=== PATIENT | female | born 1960 | race Caucasian/White ===

== ENCOUNTER 2022-11-25 06:33 | Day surgery (SDC) | payer OTHER ==
[2022-11-25] MEDS ORDERED: CEFAZOLIN 2 GM-D5W BAG** 2 GM/50 ML ML IV ONE (06:57)
[2022-11-25] MEDS ORDERED: CEFAZOLIN 2 GM-D5W BAG** 2 GM/50 ML ML IV SCH (07:00)
[2022-11-25] MEDS ORDERED: Lactated Ringers 1,000 ML IV SCH (07:00)
[2022-11-25] MEDS ORDERED: Xylocaine-Mpf 2% 5 Ml Vial ONE (08:25)
[2022-11-25] MEDS ORDERED: DIPRIVAN 200 MG/20 ML IV ONE (08:25)
[2022-11-25] MEDS ORDERED: Versed 2 MG/2 ML Injection ONE (08:25)
[2022-11-25] MEDS ORDERED: SUBLIMAZE 100 MCG/2 ML ONE (08:25)
[2022-11-25] MEDS ORDERED: TORAdol 30 mg Injection ONE (08:33)
[2022-11-25] MEDS ORDERED: Zofran 4 MG/2 ML VIAL ONE (08:33)
[2022-11-25] MEDS ORDERED: Decadron 4 MG INJ ONE (08:33)
[2022-11-25] MEDS ORDERED: PHENYLEPHRINE HCL ONE (08:35)
[2022-11-25 09:43] VITALS: BP 140/92; PULSE 89; O2SAT 93
--- NOTE | 2022-11-26 07:42 | OP ---
SURGERY DATE/TIME: 11/25/2022822 PREOPERATIVE DIAGNOSIS: Postmenopausal bleeding. POSTOPERATIVE DIAGNOSIS: Postmenopausal bleeding. PROCEDURE: Hysteroscopy D&C. SURGEON: Anjum Granda D.O. LEGAL ADMINISTRATIVE SECRETARY: Jacqueline Delong surgical technician. ANESTHESIA: General. ESTIMATED BLOOD LOSS: Minimal. COMPLICATIONS: None. INDICATIONS: The risks, benefits, indications and alternatives of the procedure were reviewed with the patient prior to procedure. The patient understood the risk of infection, bleeding, bowel injury, bladder injury, uterine perforation, pelvic infection, thromboembolic disorder associated with the surgery and desires to have this surgery as a possible means to alleviate her current medical condition. DESCRIPTION OF PROCEDURE AND FINDINGS: At this point the patient is taken to the operating room, given general sedation, placed in dorsal lithotomy position, prepped and draped in the usual sterile fashion. A weighted speculum is then placed in the patient's vagina and the anterior lip of the cervix is grasped with a single tooth tenaculum. Endocervical dilators were advanced through the endocervical canal as a means to dilate the cervix and at this point after dilatation a 5 mm hysteroscope was then placed into the fundus of the uterus where visualization of the endometrial cavity appeared to be within normal limits and no gross abnormalities were noted within the uterine cavity. The hysteroscope was then removed and the curette was then placed into the fundus of the uterus and curettage was performed in all quadrants of the uterus retrieving a mild to moderate amount of tissue. From this point hemostasis was obtained. At this point all instruments were removed from the patient's vaginal region. The patient was then taken out of the dorsal lithotomy position, was then taken out of anesthesia and was then taken to the recovery room in stable condition. All instruments and laps were accounted for x2.
== END 2022-11-25 09:50 | disposition home or self-care (01) ==
LOC: SDC 06:33
PROVIDERS: ATTEND Obstetrics & Gynecology
DX: N95.0 Postmenopausal bleeding (principal)
CPT/HCPCS: J0690; J1100; J1885; J2250; J2370; J2405; J2704; J3010

== ENCOUNTER 2024-08-30 07:29 | Day surgery (SDC) | payer OTHER ==
[2024-08-30] MEDS ORDERED: Sodium Chloride 0.9% 10 ML FLUSH Syringe IJ ONE (07:30)
[2024-08-30] MEDS ORDERED: BETADINE 5% OPHTHALMIC 30 ML OP ONE (07:30)
[2024-08-30] MEDS ORDERED: TRIAMCINOLONE 15 MG/ML INJ INTRAOP ONE (07:30)
[2024-08-30] MEDS ORDERED: VIGAMOX/BSS 0.15% SYR IO ONE (07:30)
[2024-08-30 07:58] VITALS: RESP 18
[2024-08-30] MEDS: TETRACAINE 0.5% STERI-UNIT SOL OP ONE ×2 (08:13→08:41)
[2024-08-30] MEDS: Ak-Dilate OPHTHALMIC*** 1.065 ML, Cyclogyl 1% OPHTH SOL 1.065 ML, GATIFLOXACIN 0.5% OPH... OP ONE (08:14)
[2024-08-30] MEDS ORDERED: Epinephrine Preservative Free 1 MG/ML IJ ONE (09:30)
[2024-08-30] MEDS ORDERED: Zofran 4 MG/2 ML VIAL IV PRN (09:30)
[2024-08-30] MEDS ORDERED: DIPRIVAN 200 MG/20 ML IV ONE (10:16)
[2024-08-30 10:39] VITALS: TEMP 96.9
[2024-08-30] MEDS: ACETAZOLAMIDE 250 MG TABLET PO ONE (10:49)
[2024-08-30 10:54] VITALS: O2SAT 95
[2024-08-30 10:59] VITALS: BP 121/95; PULSE 95
== END 2024-08-30 11:08 | disposition home or self-care (01) ==
LOC: SDC 07:29
PROVIDERS: ATTEND Ophthalmology
DX: H25.812 Combined forms of age-related cataract, left eye (principal)
CPT/HCPCS: C1780; J0171; J2704; A9270-GY

== ENCOUNTER 2025-07-05 06:32 | Day surgery (SDC) | payer OTHER ==
[2025-07-05] MEDS ORDERED: TYLENOL EXTRA STRENGTH 500 MG ONE (07:08)
[2025-07-05] MEDS ORDERED: CEFAZOLIN SODIUM ONE (07:08)
[2025-07-05] MEDS ORDERED: NEURONTIN ONE (07:08)
[2025-07-05] MEDS ORDERED: celeBREX 100 MG ONE (07:09)
[2025-07-05] MEDS ORDERED: Decadron 4 MG ONE (07:09)
[2025-07-05] MEDS ORDERED: Lactated Ringers 1,000 ML IV ONE (07:09)
[2025-07-05] MEDS: NEURONTIN PO ONE (07:12)
[2025-07-05] MEDS: TYLENOL EXTRA STRENGTH 500 MG PO ONE (07:13)
[2025-07-05] MEDS: Lactated Ringers 1,000 ML IV SCH (07:13)
[2025-07-05] MEDS: Decadron 4 MG PO ONE (07:13)
[2025-07-05] MEDS: celeBREX 100 MG PO ONE (07:13)
[2025-07-05] MEDS: TRANEXAMIC 1,000 MG/100ML-NACL 1,000 MG/100 ML PIGGYBACK IV ONE (07:20)
[2025-07-05] MEDS ORDERED: TRANEXAMIC 1,000 MG/100ML-NACL 1,000 MG/100 ML PIGGYBACK IV ONE ×2 (07:20→10:45)
[2025-07-05] MEDS ORDERED: propofoL IV ONE (07:42)
[2025-07-05] MEDS ORDERED: Xylocaine-Mpf 2% 5 Ml Vial ONE ×2 (07:43→08:26)
[2025-07-05] MEDS ORDERED: SUBLIMAZE 100 MCG/2 ML ONE ×2 (07:45→08:24)
[2025-07-05] MEDS ORDERED: Versed 2 MG/2 ML Injection ONE ×2 (07:45→08:24)
[2025-07-05] MEDS ORDERED: ROCURONIUM BROMIDE IV ONE ×2 (07:45→09:05)
[2025-07-05] MEDS ORDERED: Marcaine 0.5%/Epinephrine 10 ML ONE (07:46)
[2025-07-05] MEDS ORDERED: EXPAREL 133 MG/10 ML VIAL IJ ONE (07:48)
[2025-07-05] MEDS ORDERED: MARCAINE 0.25% PF/ EPI 1:200,000 ONE (08:18)
[2025-07-05] MEDS ORDERED: MARCAINE 0.5%-EPI 1:200,000 VL IJ ONE (08:18)
[2025-07-05] MEDS ORDERED: Astramorph-Pf 5 MG/10 ML ONE (08:54)
[2025-07-05] MEDS ORDERED: BRIDION 200MG/2ML IV ONE ×2 (09:05→11:08)
[2025-07-05] MEDS ORDERED: Zofran 4 MG/2 ML VIAL ONE (09:05)
[2025-07-05] MEDS ORDERED: Ephedrine Sulfate 50 MG/ML ONE (10:16)
[2025-07-05] MEDS ORDERED: ALBUTEROL/Proair Hfa MDI IH ONE (11:19)
--- NOTE | 2025-07-05 12:28 | XRAY ---
Indication: Postop exam. Comparison: None AP/cross-table lateral left knee demonstrates intact total knee arthroplasty with postoperative soft tissue swelling/emphysema, and anterior cutaneous devaughn. Elsewhere age-related osteopenia. No other abnormalities.
[2025-07-05] MEDS ORDERED: PERCOCET TABLET 5/325MG PO PRN (13:00)
[2025-07-05] MEDS ORDERED: DEMEROL 50 MG IV PRN (13:00)
[2025-07-05] MEDS ORDERED: CLARITIN 10 MG PO PRN (13:00)
[2025-07-05] MEDS ORDERED: Sodium Chloride 0.9% 10 ML FLUSH Syringe IJ PRN (13:00)
[2025-07-05] MEDS ORDERED: BENADRYL 50 MG/ML IV PRN (13:00)
[2025-07-05] MEDS ORDERED: Narcan 0.4 MG/ML IV PRN (13:00)
[2025-07-05] MEDS ORDERED: Nubain 10 MG/ML IV PRN (13:00)
[2025-07-05] MEDS ORDERED: MORPHINE SULFATE 2 MG INJ IV PRN (13:00)
[2025-07-05] MEDS ORDERED: MORPHINE SULFATE 4 MG INJ IV PRN (13:37)
[2025-07-05] MEDS: Zofran 4 MG/2 ML VIAL IV PRN (13:40)
[2025-07-05] MEDS: Toprol-Xl 25MG Tablets PO SCH (14:29)
[2025-07-05] MEDS: NORCO 10-325 MG PO PRN (17:49)
[2025-07-05 20:28] VITALS: RESP 20; O2SAT 96
[2025-07-05] MEDS ORDERED: NON-FORMULARY ITEM (Apixaban [Eliquis] 5 MG Tablet) PO SCH (22:00)
[2025-07-06 04:43] VITALS: BP 116/56; PULSE 82; TEMP 97.2
[2025-07-06] MEDS: ELIQUIS 2.5 MG TABLET PO SCH (08:54)
[2025-07-06] MEDS: Compazine 10 MG/2 ML IV ONE (09:09)
[2025-07-06] MEDS: HOLD NARCOTIC ANALGESICS AND SEDATIVES X24 HR MC SCH (10:00)
[2025-07-06] MEDS: ZOCOR 20MG PO SCH (10:00)
[2025-07-06] MEDS ORDERED: NON-FORMULARY ITEM (Rosuvastatin Calcium [Crestor] 20 MG Tablet) PO SCH (10:00)
--- NOTE | 2025-07-06 10:27 | PCM.NOTE ---
Date and Time: 07/06/25 1024 Subjective Assessment: She has had nausea which has gotten somewhat better with the medication. States her left knee is doing well. She has ambulated with PT and is ready to go home. Objective Exam Objective Exam: Left knee dressing is clean, dry, intact. NVI. Objective Data Vital Signs: Vital Signs - 24 hr Temp Pulse Resp BP BP Pulse Ox 07/06/25 04:00 97.2 F 82 20 116/56 96 07/05/25 20:00 97.1 F 89 20 108/57 96 07/05/25 14:06 95 07/05/25 12:26 98.3 F 82 16 100/60 95 07/05/25 12:22 98.3 F 82 16 100/60 95 Pain Assessment - Last Documented Pain Intensity 3 Pain Scale Used [facility] Intake and Output: Intake & Output 07/04/25 07/05/25 07/06/25 07/07/25 06:59 06:59 06:59 06:59 Intake Total 3448 Balance 3448 Weight 126 kg 126 kg Lab Results: Lab Results-Last 24 Hours 07/05/25 Range/Units 11:34 POC Glucometer 203 H (74 to 106) mg/dL Radiology Exams: Radiology Procedures Category Date Time Status KNEE (1 OR 2 VIEW) Routine Exams 07/05/25 11:50 Completed Medications: Medications Generic Name Dose Route Start Last Admin Trade Name Freq PRN Reason Stop Dose Admin Hydrocodone Bitart/Acetaminophen 1 tablet 07/05/25 12:40 07/06/25 08:40 Hydrocodone/Acetamin 10-325 Mg Tablet PO 07/10/25 12:39 1 tablet Q4H PRN PRN Administration SEVERE PAIN (8-10) Apixaban 5 mg 07/06/25 10:00 07/06/25 08:54 Apixaban 2.5 Mg Tablet PO 08/05/25 09:59 5 mg BID ACACIA Administration Diphenhydramine HCl 12.5 - 25 mg 07/05/25 13:00 Diphenhydramine Hcl 50 Mg/Ml Vial IV 07/06/25 12:59 Q6H PRN PRN FOR INTOLERABLE ITCHING Lactated Ringer's 1,000 mls @ 125 mls/hr 07/05/25 07:00 07/06/25 05:58 Lactated Ringers IV 08/04/25 06:59 125 mls/hr .Q8H ACACIA Administration Loratadine 10 mg 07/05/25 13:00 Loratadine 10 Mg Tablet PO 07/06/25 12:59 QDP PRN ITCHING Meperidine HCl 12.5 mg 07/05/25 13:00 Meperidine Hcl 50 Mg/Ml Carp IV 07/06/25 12:59 PRN PRN X 1 PRN SHAKING/TREMORS Metoprolol Succinate 25 mg 07/05/25 13:30 07/06/25 09:59 Metoprolol Succinate 25 Mg Xl Tab PO 08/04/25 13:29 Not Given DAILY ACACIA Morphine Sulfate 2 mg 07/05/25 13:37 Morphine Sulfate 4 Mg/Ml Injection IV 07/10/25 13:36 .Q30MIN PRN PRN BREAKTHROUGH ,SEVERE PAIN Nalbuphine HCl 5 mg 07/05/25 13:00 Nalbuphine Hcl 10 Mg/Ml Ampul IV 07/06/25 12:59 Q6H PRN PRN FOR INTOLERABLE ITCHING Naloxone HCl 0.1 mg 07/05/25 13:00 Naloxone Hcl 0.4 Mg/Ml Ml IV 07/06/25 12:59 PRN PRN Ondansetron HCl 4 mg 07/05/25 13:00 07/06/25 08:40 Ondansetron Hcl 4 Mg/2 Ml Vial IV 07/06/25 12:59 4 mg PRN PRN Administration NAUSEA Oxycodone/Acetaminophen 1 - 2 tab 07/05/25 13:00 Oxycodone Hcl/Apap 5 Mg/325 Mg Tablet PO 07/06/25 12:59 Q4H PRN PRN MODERATE PAIN Simvastatin 40 mg 07/06/25 10:00 07/06/25 10:00 Simvastatin 20 Mg Tablet PO 08/05/25 09:59 Not Given DAILY ACACIA Sodium Chloride 10 ml 07/05/25 13:00 Normal Saline 10 Ml Flush IJ 07/06/25 12:59 PRN PRN MAINTAIN IV/SALINE LOCK Discontinued Medications Generic Name Dose Route Start Last Admin Trade Name Freq PRN Reason Stop Dose Admin Acetaminophen 1,000 mg 07/05/25 06:54 07/05/25 07:13 Acetaminophen 500 Mg Tablet PO 07/05/25 06:55 1,000 mg 2HRPRIOR ONE Administration Acetaminophen Confirm 07/05/25 07:08 Acetaminophen 500 Mg Tablet Administered 07/05/25 07:09 Dose 1,000 mg .ROUTE .STK-MED ONE Albuterol Sulfate Confirm 07/05/25 11:19 Proair Hfa Mdi 8.5 Gm Administered 07/05/25 11:20 Dose 8.5 gm IH .STK-MED ONE Bupivacaine HCl/Epinephrine Bitart Confirm 07/05/25 07:46 Bupivacaine Hcl/Epinephrine 10 Ml Vial Administered 07/05/25 07:47 Dose 20 ml .ROUTE .STK-MED ONE Bupivacaine HCl/Epinephrine Bitart Confirm 07/05/25 08:18 Bupivacaine Hcl/Epinephrine/Pf 10 Ml Vial Administered 07/05/25 08:19 Dose 20 ml .ROUTE .STK-MED ONE Bupivacaine HCl/Epinephrine Bitart Confirm 07/05/25 08:18 Bupivacaine 0.5%/Epineph/Pf 30 Ml Vial Administered 07/05/25 08:19 Dose 30 ml IJ .STK-MED ONE Bupivacaine Liposome Confirm 07/05/25 07:48 Bupivacaine Liposome/Pf 133 Mg/10 Ml Administered 07/05/25 07:49 Dose 133 mg IJ .STK-MED ONE Cefazolin Sodium Confirm 07/05/25 07:08 Cefazolin Sodium 2 Gm Vial Administered 07/05/25 07:09 Dose 2 gm .ROUTE .STK-MED ONE Celecoxib 200 mg 07/05/25 06:54 07/05/25 07:13 Celecoxib 100 Mg Capsule PO 07/05/25 06:55 200 mg 2HRPRIOR ONE Administration Celecoxib Confirm 07/05/25 07:09 Celecoxib 100 Mg Capsule Administered 07/05/25 07:10 Dose 200 mg .ROUTE .STK-MED ONE Dexamethasone 8 mg 07/05/25 06:54 07/05/25 07:13 Dexamethasone 4 Mg Tablet PO 07/05/25 06:55 8 mg 2HRPRIOR ONE Administration Dexamethasone Confirm 07/05/25 07:09 Dexamethasone 4 Mg Tablet Administered 07/05/25 07:10 Dose 8 mg .ROUTE .STK-MED ONE Ephedrine Sulfate Confirm 07/05/25 10:16 Ephedrine Sulfate 50 Mg/Ml Administered 07/05/25 10:17 Dose 50 mg .ROUTE .STK-MED ONE Fentanyl Citrate Confirm 07/05/25 07:45 Fentanyl Citrate 100 Mcg/2 Ml* Vial Administered 07/05/25 07:46 Dose 100 mcg .ROUTE .STK-MED ONE Fentanyl Citrate Confirm 07/05/25 08:24 Fentanyl Citrate 100 Mcg/2 Ml* Vial Administered 07/05/25 08:25 Dose 100 mcg .ROUTE .STK-MED ONE Gabapentin 600 mg 07/05/25 06:54 07/05/25 07:12 Gabapentin 300 Mg Capsule PO 07/05/25 06:55 600 mg 2HRPRIOR ONE Administration Gabapentin Confirm 07/05/25 07:08 Gabapentin 300 Mg Capsule Administered 07/05/25 07:09 Dose 600 mg .ROUTE .STK-MED ONE TRANEXAMIC ACID IN NACL,ISO-OS 1,000 mg in 100 mls @ 600 mls/hr 07/05/25 06:55 07/05/25 07:20 Tranexamic 1,000 Mg/100ml-Nacl IV 07/05/25 07:04 600 mls/hr ONCE ONE Administration Cefazolin Sodium 2 gm/ Sodium 100 mls @ 200 mls/hr 07/05/25 06:57 07/05/25 07:13 Chloride IV 07/05/25 07:26 200 mls/hr ONCALLTOOR ONE Administration Sodium Chloride Confirm 07/05/25 07:08 Sodium Chloride 0.9% Administered 07/05/25 07:09 Dose 100 mls @ ud .ROUTE .STK-MED ONE Lactated Ringer's Confirm 07/05/25 07:09 Lactated Ringers Administered 07/05/25 07:10 Dose 1,000 mls @ ud IV .STK-MED ONE TRANEXAMIC ACID IN NACL,ISO-OS Confirm 07/05/25 07:20 Tranexamic 1,000 Mg/100ml-Nacl Administered 07/05/25 07:21 Dose 1,000 mg in 100 mls @ ud IV .STK-MED ONE TRANEXAMIC ACID IN NACL,ISO-OS Confirm 07/05/25 10:45 Tranexamic 1,000 Mg/100ml-Nacl Administered 07/05/25 10:46 Dose 1,000 mg in 100 mls @ ud IV .STK-MED ONE Lidocaine HCl Confirm 07/05/25 07:43 Lidocaine - Mpf 2% 5 Ml Vial Administered 07/05/25 07:44 Dose 5 ml .ROUTE .STK-MED ONE Lidocaine HCl Confirm 07/05/25 08:26 Lidocaine - Mpf 2% 5 Ml Vial Administered 07/05/25 08:27 Dose 5 ml .ROUTE .STK-MED ONE Midazolam HCl Confirm 07/05/25 07:45 Midazolam Hcl 2 Mg/2 Ml Vial Administered 07/05/25 07:46 Dose 2 mg .ROUTE .STK-MED ONE Midazolam HCl Confirm 07/05/25 08:24 Midazolam Hcl 2 Mg/2 Ml Vial Administered 07/05/25 08:25 Dose 2 mg .ROUTE .STK-MED ONE Morphine Sulfate Confirm 07/05/25 08:54 Morphine Sulfate 5 Mg/10 Ml Pf Ampul Administered 07/05/25 08:55 Dose 5 mg .ROUTE .STK-MED ONE Morphine Sulfate 2 mg 07/05/25 13:00 Morphine Sulfate 2 Mg/Ml Inj IV 07/06/25 12:59 .Q30MIN PRN PRN BREAKTHROUGH ,SEVERE PAIN Non-Formulary Medication 1 each 07/06/25 10:00 07/06/25 10:00 Hold Narcotic Analgesics/Sedatives 1 Each Each 07/06/25 10:01 Not Given DAILY ACACIA Ondansetron HCl Confirm 07/05/25 09:05 Ondansetron Hcl 4 Mg/2 Ml Vial Administered 07/05/25 09:06 Dose 4 mg .ROUTE .STK-MED ONE Prochlorperazine Edisylate 10 mg 07/06/25 09:03 07/06/25 09:09 Prochlorperazine Edisylate 10 Mg/2 Ml Vial IV 07/06/25 09:04 10 mg STAT ONE Administration Propofol Confirm 07/05/25 07:42 Propofol 200 Mg/20 Ml Vial Administered 07/05/25 07:43 Dose 200 mg IV .STK-MED ONE Rocuronium Sutton Confirm 07/05/25 07:45 Rocuronium Sutton 50 Mg/5 Ml Vial Administered 07/05/25 07:46 Dose 50 mg IV .STK-MED ONE Rocuronium Sutton Confirm 07/05/25 09:05 Rocuronium Sutton 50 Mg/5 Ml Vial Administered 07/05/25 09:06 Dose 50 mg IV .STK-MED ONE Sugammadex Sodium Confirm 07/05/25 09:05 Sugammadex Sodium 200 Mg/2 Ml Vial Administered 07/05/25 09:06 Dose 200 mg IV .STK-MED ONE Sugammadex Sodium Confirm 07/05/25 11:08 Sugammadex Sodium 200 Mg/2 Ml Vial Administered 07/05/25 11:09 Dose 200 mg IV .STK-MED ONE Assessment/Plan - Assessment/Plan Assessment & Plan: s/p left TKA, POD #1 Continue eliquis DC home. Follow up in 10-14 days for staple removal.
--- NOTE | 2025-07-06 11:18 | OP ---
SURGERY DATE/TIME: 07/05/2025 [id number] PREOPERATIVE DIAGNOSIS: Left knee degenerative joint disease. POSTOPERATIVE DIAGNOSIS: Left knee degenerative joint disease. PROCEDURE: Left total knee arthroplasty. SURGEON: Tadeo Donovan MD DRIER TRANSFER CAR OPERATOR: None. ANESTHESIA: General and spinal. COMPLICATIONS: None. ESTIMATED BLOOD LOSS: 50 mL. INDICATIONS: The patient is a 64-year-old female who presented with a several-year history of worsening left knee pain. Her x-rays revealed advanced degenerative joint disease predominantly involving the medial compartment. We discussed options, and she wanted to proceed with left total knee arthroplasty. I explained risks with the procedure including, but not limited to, infection, pain, bleeding, damage to surrounding structures, stiffness, limp, blood clot, pneumonia, and need for further procedures. After explaining all risks, benefits, and alternative treatment options, she desired to proceed with surgery. DESCRIPTION OF PROCEDURE AND FINDINGS: The patient was taken to the operating room and placed in supine position. IV antibiotics were administered and general anesthesia was administered as well. A tourniquet was applied to the left upper thigh. The left lower extremity was then prepped and draped in standard sterile fashion. An Esmarch was used to exsanguinate the limb and the tourniquet was inflated to 250 mmHg. A longitudinal incision was then made over the anterior aspect of the left knee. A medial parapatellar arthrotomy was made, extending partway into the vastus medialis obliquus muscle. The infrapatellar fat pad was then excised and the knee was flexed. The drill was then used to enter the femoral canal. The distal femoral cutting guide was then secured into place and the distal femoral cut was made. The cruciate ligaments were sacrificed. The tibia was subluxed anteriorly. The extramedullary tibial guide was then placed according to appropriate alignment and slope. The stylus was then used to determine the desired depth of tibial cut. The tibial cutting block was then pinned into position and the tibial cut was made. The extension was then checked and it was noted to be adequate. The femoral sizing guide was then pinned into position and the femur was sized. A size 6 femoral cutting block was then pinned in place and the remaining femoral cuts were made. The menisci were then excised. At this time, a size D trial tibial baseplate was pinned into position. A size 6 cruciate-retaining trial femur was placed. A 10 mm trial polyethylene was inserted and this gave excellent stability and range of motion. There was excellent patellar tracking. The trial insert was removed and the lug holes for the femur were drilled. The tibia was then punched and the trial baseplate was removed. The bony surfaces were thoroughly irrigated with a pulse lavage and dried as cement was mixed on the back table. The patella had been denervated using the Bovie. The following components were then cemented into position, the [employer] system: A size D tibial baseplate, a size 6 cruciate-retaining femoral component, and a 10 mm medial congruent polyethylene. Excess cement was removed. The wound was thoroughly irrigated with the pulse lavage. The arthrotomy was approximated with #1 Vicryl sutures in a [id number] fashion. The subcutaneous tissue was closed with 2-0 Vicryl sutures and the skin was closed with devaughn. A sterile dressing was then applied and the tourniquet was released. The patient was then awakened from anesthesia and taken to the recovery room in stable condition.
== END 2025-07-06 10:25 | disposition home or self-care (01) ==
LOC: SDC 06:32 → MED SURG 12:12 → SDC 07-06 10:25
PROVIDERS: ATTEND Orthopaedic Surgery
DX: M17.12 Unilateral primary osteoarthritis, left knee (principal); E11.9 Type 2 diabetes mellitus without complications